=== PATIENT | male | born 1950 | race Caucasian/White ===

== ENCOUNTER 2019-09-06 11:41 | Emergency (ER) | payer OTHER, SELFPAY ==
--- NOTE | ~2019-09-06 | XR_ITS ---
EXAMINATION: XR chest 2V DATE: 09/06/2019 12:12 INDICATION: Chest pain and shortness of breath TECHNIQUE: PA and lateral views of the chest are obtained. COMPARISON: None available FINDINGS: The lungs are free of acute opacities. There is no pleural effusion or pneumothorax. Cardio megaly is noted. There is moderate thoracic spondylosis. Median sternotomy wires and mediastinal surg ical clips are seen, likely from prior coronary artery bypass grafting. IMPRESSION: 1. No acute cardiopulmonary abnormality. Reviewed, dictated and finalized at location B.
[2019-09-06 11:45] VITALS: BP 223/98; PULSE 74; RESP 21; TEMP 37.2; O2SAT 98
--- NOTE | 2019-09-06 11:50 | ECG_ITS ---
Measurements Intervals Royal Rate: 74 P: 19 GA: 240 QRS: -35 QRSD: 108 T: 7 QT: 324 QTc: 360 Interpretive Statements SINUS RHYTHM WITH FIRST DEGREE AV BLOCK INFERIOR INFARCT, AGE INDETERMINATE BASELINE ARTIFACT- I, II, AVR ABNORMAL ECG Electronically Signed On 09-06-2019 16:22:47 CDT by Jose Childers D.O.
[2019-09-06 11:52] VITALS: PULSE 76
--- NOTE | 2019-09-06 11:53 | ED.CHESTPAIN ---
HPI - Chest Pain General Chief Complaint: Chest Pain Stated Complaint: cp Time Seen by Provider: 09/06/19 11:53 History of Present Illness HPI narrative: Mild to moderate intermittent chest pain for about the past 2 hours. Started while walking up stairs. Better with rest and worse with exertion. He has h/o DC he says that this feels different. He is s/p CABG. Related Data Home Medications Medication Instructions Recorded Confirmed clonidine HCl 09/06/19 furosemide 09/06/19 metformin mg 09/06/19 metoprolol tartrate 09/06/19 omeprazole 09/06/19 quinapril mg 09/06/19 sertraline mg 09/06/19 simvastatin mg 09/06/19 09/06/19 Allergies Allergy/AdvReac Type Severity Reaction Status Date / Time No Known Allergies Allergy Verified 09/06/19 12:59 Review of Systems Review of Systems: All systems reviewed & are unremarkable except as noted in HPI and below Constitutional: Constitutional: Denies chills and Denies fever(s) Cardiovascular: Cardiovascular: Reports chest pain and Denies radiating jaw, neck or arm pain Respiratory: Respiratory: Reports dyspnea Gastrointestinal: Gastrointestinal: Denies abdominal pain, Denies nausea and Denies vomiting [facility] Past Medical History Medical History (Updated 09/06/19 @ 16:50 by Earl Raygoza MD) Myocardial infarct Surgical History Surgical History (Updated 09/06/19 @ 16:50 by Earl Raygoza MD) Hx of CABG Social History Social History Gender identity (if verbalized by the patient): Male Exam Const: General: healthy appearing, no acute distress and alert Nutritional Appearance: obese Orientation/consciousness: patient oriented x3 HENMT: Head: normal to inspection Neck: Neck: normal visual inspection and no lymphadenopathy Chest: Chest palpation & inspection: no tenderness Resp: Effort & Inspection: normal respiratory effort Auscultation: clear to auscultation bilaterally, no rales, no rhonchi and no wheezes Cardio: Jugular venous distension: no JVD Rate: regular rate Rhythm: regular rhythm Heart sounds: no murmurs GI: Inspection: non-distended GI Palp: Yes Soft to palpation and No Tenderness to palpation present (GI) Skin: General skin exam: normal color Neuro: General: patient oriented x3 and moves all extremities Speech: normal speech Extrem: General: no edema Psych: Appearance: well kempt Affect: normal affect Course Vital Signs Vital signs: Vital Signs Temperature 37.2 C 09/06/19 11:45 Pulse Rate 74 09/06/19 11:45 Respiratory Rate 21 H 09/06/19 11:45 Blood Pressure 223/98 H 09/06/19 11:45 Pulse Oximetry 98 09/06/19 11:45 Temperature 37.2 C 09/06/19 11:45 Pulse Rate 74 09/06/19 16:00 Respiratory Rate 14 09/06/19 16:00 Blood Pressure 124/74 09/06/19 16:00 Pulse Oximetry 97 09/06/19 16:00 MDM - Chest Pain MDM Narrative Medical decision making narrative: Chest pain resolved with nitro and metoprolol. Pain free for a few hours before second troponin. Troponins are not negative, but within normal limits. Pain was likely due to severly elevated BP. Case discussed with Christine Diallo. She is in agreement and feels that he can be discharged and should follow-up in clinic. Medical Records Data Attestation: I reviewed the patient's medical records. Lab Data Attestation: I reviewed the patient's lab results. Result diagrams: 09/06/19 11:58 09/06/19 11:58 Labs: Lab Results 09/06/19 09/06/19 09/06/19 Range/Units 11:58 11:58 11:58 WBC 8.5 (4.5-10.0) K/mm3 RBC 5.93 (4.6-6.20) M/mm3 Hgb 14.0 (14.0-18.0) g/dL Hct 45.2 (42.0-52.0) % MCV 76.2 L (80-100) fl MCH 23.6 L (26-34) pg MCHC 31.0 L (32-36) g/dl RDW 18.2 H (11.5-14.5) % Plt Count 212 (150-375) k/mm3 MPV 9.8 (7.4-10.4) fl Immature Gran % (Auto) 0.2 (0-0.5) % Neut % (Auto) 58.6 (45.5-
[2019-09-06 12:10] LABS: Basophils Absolute Auto 0.1 K/mm3 (0.0-0.1); Basophils Percent Auto 0.7 % (0.2-1.2); Eosinophils Absolute Auto 0.2 K/mm3 (0-0.3); Eosinophils Percent Auto 1.8 % (0-4.4); Hematocrit 45.2 % (42.0-52.0); Immature Granulocyte Absolute 0.02 K/mm3 (0.00-0.031); Immature Granulocyte Percent A 0.2 % (0-0.5); Lymphocytes Percent Auto 30.6 % (18.3-44.2); Mean Corpuscular Hemoglobin 23.6 pg (26-34); Mean Corpuscular Volume 76.2 fl (80-100); Mean Platelet Volume 9.8 fl (7.4-10.4); Monocytes Absolute Auto 0.7 K/mm3 (0.1-0.6); Monocytes Percent Auto 8.1 % (2.6-8.5); Neutrophils Percent Auto 58.6 % (45.5-73.1); Platelet Count Result 212 k/mm3 (150-375); Red Blood Count 5.93 M/mm3 (4.6-6.20); Red Cell Distribution Width 18.2 % (11.5-14.5); White Blood Count 8.5 K/mm3 (4.5-10.0)
[2019-09-06 12:20] LABS: Anion Gap 13.4 mmol/L (7-16); Blood Urea Nitrogen 16 mg/dL (9-20); Calcium 9.3 mg/dL (8.4-10.2); Carbon Dioxide 26 mmol/L (22-30); Chloride 103 mmol/L (98-107); Estimated CRCL calculation 117 ml/min; Estimated Glomerular Filt Rate > 60; Glucose 215 mg/dL (75-110); Potassium 4.4 mmol/L (3.4-5.0); Prothrombin Time 13.1 Seconds (11.1-14.7); Sodium 138 mmol/L (137-145)
[2019-09-06 12:21] LABS: Partial Thromboplastin Time 29.9 SECONDS (22.3-36.8)
[2019-09-06] MEDS: NITROGLYCERIN OINTMENT 1 INCH DOSE TRANSDERM (12:25)
[2019-09-06 12:32] LABS: Troponin I 0.013 ng/mL (0.000-0.034)
[2019-09-06 12:58] VITALS: BP 165/85; PULSE 72; RESP 22; O2SAT 96
[2019-09-06] MEDS: METOPROLOL TARTRATE INJ 5 MG/5 ML VIAL IV PUSH (12:58)
[2019-09-06 13:53] VITALS: BP 123/56; PULSE 68; RESP 17; O2SAT 95
[2019-09-06 14:51] VITALS: BP 132/81; PULSE 68; RESP 14; O2SAT 95
[2019-09-06 15:37] LABS: Troponin I 0.015 ng/mL (0.000-0.034)
[2019-09-06 16:00] VITALS: BP 124/74; PULSE 74; RESP 14; O2SAT 97
--- NOTE | 2019-09-06 16:28 | PC.NURSE ---
removed nitro patch prior to dept
== END 2019-09-06 16:45 | disposition home or self-care (01) ==
PROVIDERS: Emergency Provider Emergency Medicine; PCP Family Medicine
DX: R07.9 Chest pain, unspecified (principal); I10 Essential (primary) hypertension; I25.10 Atherosclerotic heart disease of native coronary artery without angina pectoris; Z95.1 Presence of aortocoronary bypass graft; I25.2 Old myocardial infarction; I44.0 Atrioventricular block, first degree
CPT/HCPCS: 36415; 71046; 80048; 84484; 85025; 85610; 85730; 93005; 96374; 99284; A9270

== ENCOUNTER → 2023-01-12 11:41 | Outpatient (CLI) | payer OTHER, SELFPAY ==
--- NOTE | ~2023-01-12 | XR_ITS ---
Clinical Indication: Cough PA and lateral views of the chest: Comparison: 09/06/2019 Findings: The lungs are clear, without evidence of focal consolidation or pleural effusion. Cardiome diastinal silhouette is stable. Bones and soft tissues are unremarkable. Impression: Clear lungs. Reviewed, dictated and finalized at location . ER HEARTH TECHNICIAN Impression: Clear lungs.
== END ==
PROVIDERS: PCP Family Medicine; Visit Provider Nurse Practitioner Family
DX: R05.9 Cough, unspecified (principal); R06.2 Wheezing; E11.9 Type 2 diabetes mellitus without complications; I10 Essential (primary) hypertension; Z87.891 Personal history of nicotine dependence; Z95.1 Presence of aortocoronary bypass graft
CPT/HCPCS: 71046

== ENCOUNTER 2023-05-22 10:40 | Outpatient (CLI) | payer OTHER, SELFPAY ==
[2023-05-22 14:21] LABS: Basophils Absolute Auto 0.1 K/mm3 (0.0-0.1); Basophils Percent Auto 0.9 % (0.2-1.2); Eosinophils Absolute Auto 0.3 K/mm3 (0-0.3); Eosinophils Percent Auto 3.4 % (0-4.4); Hematocrit 44.8 % (42.0-52.0); Hemoglobin 14.5 g/dL (14.0-18.0); Immature Granulocyte Absolute 0.01 K/mm3 (0.00-0.031); Immature Granulocyte Percent A 0.1 % (0-0.5); Lymphocytes Percent Auto 28.4 % (18.3-44.2); Mean Corpuscular HGB Conc 32.4 g/dl (32-36); Mean Corpuscular Hemoglobin 29.4 pg (26-34); Mean Corpuscular Volume 90.9 fl (80-100); Mean Platelet Volume 10.1 fl (7.4-10.4); Monocytes Absolute Auto 0.8 K/mm3 (0.1-0.6); Monocytes Percent Auto 10.7 % (2.6-8.5); Neutrophils Absolute Auto 4.2 K/mm3 (1.3-6.7); Neutrophils Percent Auto 56.5 % (45.5-73.1); Platelet Count Result 201 k/mm3 (150-375); Red Blood Count 4.93 M/mm3 (4.6-6.20); Red Cell Distribution Width 12.6 % (11.5-14.5); White Blood Count 7.4 K/mm3 (4.5-10.0)
[2023-05-22 15:34] LABS: Alanine Aminotransferase 23 U/L (6-50); Albumin Level 4.8 g/dL (3.5-5.1); Alkaline Phosphatase 89 U/L (38-126); Anion Gap 9 mmol/L (4-12); Aspartate Amino Transferase 35 U/L (17-59); Bilirubin,Total 0.7 mg/dL (0.2-1.3); Blood Urea Nitrogen 35 mg/dL (9-20); Calcium 9.6 mg/dL (8.4-10.2); Carbon Dioxide 29 mmol/L (22-30); Chloride 100 mmol/L (98-107); Cholesterol 146 mg/dL (0-200); Estimated Glomerular Filt Rate > 60; Glucose 124 mg/dL (65-110); HDL Direct 42 mg/dL; Potassium 4.2 mmol/L (3.4-5.0); Sodium 138 mmol/L (137-145); Triglycerides 248 mg/dL (<150)
[2023-05-22 15:40] LABS: Vitamin D 25 Hydroxy 30.4 ng/mL
[2023-05-22 15:46] LABS: LDL Cholesterol Direct 68 mg/dL
[2023-05-22 16:03] LABS: Hemoglobin A1C 6.2 % (<5.7)
[2023-05-22 16:04] LABS: Thyroid Stimulating Hormone 0.084 uIU/mL (0.465-4.680)
== END 2023-05-22 10:41 | disposition home or self-care (01) ==
LOC: ANHGOSHLAB 10:41
PROVIDERS: PCP Family Medicine; Visit Provider Nurse Practitioner Family
DX: E78.5 Hyperlipidemia, unspecified (principal); E11.9 Type 2 diabetes mellitus without complications; I10 Essential (primary) hypertension; E55.9 Vitamin D deficiency, unspecified; Z13.29 Encounter for screening for other suspected endocrine disorder
CPT/HCPCS: 36415; 80053; 80061; 82306; 83036; 84443; 85025

== ENCOUNTER 2023-12-06 08:04 | Outpatient (CLI) | payer OTHER, SELFPAY ==
--- NOTE | ~2023-12-06 | CT_ITS ---
CT Scan of the Chest without Contrast: Clinical Indication: Lung cancer screening, nicotine dependence Technique: Contiguous sections were acquired throughout the chest without intravenous contrast. Dose reduction technique was used on this scan by utilizing automated exposure control and iterative recon struction technique. The dose-length product (DLP) was 416.70 mGy-cm. Findings: There is no evidence of any significant mediastinal, hilar or axillary lymphadenopathy. Probable prio r CABG.. Probable enlarged thyroid gland with nodules. There is no evidence of pleural or pericardial effusion. 7 mm left lower lobe pulmonary nodule present (axial image 71). Images through the upper abdomen reveal no abnormalities. Impression: Lung RADS 3: Probably benign. Six-month follow-up screening CT advised. Reviewed, dictated and finalized at location . Impression: Lung RADS 3: Probably benign. Six-month follow-up screening CT advised.
== END 2023-12-06 08:05 | disposition home or self-care (01) ==
LOC: GOSHIMG 08:05
PROVIDERS: PCP Family Medicine; Visit Provider Nurse Practitioner Family
DX: Z12.2 Encounter for screening for malignant neoplasm of respiratory organs (principal); Z87.891 Personal history of nicotine dependence; R91.8 Other nonspecific abnormal finding of lung field
CPT/HCPCS: 71271

== ENCOUNTER 2025-02-01 06:09 | Emergency (ER) | payer OTHER, SELFPAY ==
--- NOTE | ~2025-02-01 | CT_ITS ---
CT lumbar spine CLINICAL HISTORY: Traumatic lower back pain Technique: Lumbar spine Sagittal and coronal reformats. No contrast CT images acquired with automatic exposure control for dose reduction DLP: 1317 mGy-cm Comparison: None Findings: No fracture. Trace grade 1 anterolisthesis L3 on 4. Grade 1 retrolisthesis L5 on S1. Multilevel disc disease, worst L3-4. Moderate degenerative changes. No paraspinal soft tissue abnormality. IMPRESSION: 1. No acute findings. Reviewed, dictated and finalized at location R. 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 No acute findings.
--- NOTE | ~2025-02-01 | CT_ITS ---
CT ABDOMEN AND PELVIS WITHOUT CONTRAST Clinical History: Kidney stone Comparison: 01/12/2017 Technique: Unenhanced axial images lung bases to symphysis pubis Coronal, sagittal reformats CT images acquired with automatic exposure control for dose reduction DLP: 1715 mGy-cm Findings: Without intravenous contrast, sensitivity for detecting visceral parenchymal abnormalities decreased. Lung bases: Clear. Visualized heart and pericardium: Unremarkable. Liver: Unremarkable. Gallbladder: Unremarkable. Spleen: Unremarkable. Pancreas: Tiny parenchymal calcifications. Adrenal glands: Unremarkable. Kidneys: Right kidney- No hydronephrosis. No renal stones. A few small cysts. Left kidney- No hydronephrosis. No renal stones. A few small cysts. Distal esophagus/stomach: Unremarkable. Small bowel loops: Normal caliber and wall thickness. Colon: Diverticula. Normal caliber and wall thickness. Normal RLQ appendix. Nodes: No enlarged nodes. Peritoneum: No ascites. No free intraperitoneal air. Pelvis obscured from bilateral hip prostheses streak artifact. Urinary bladder: Unremarkable. Prostate: Unremarkable. Bones: No acute bony abnormality. Soft tissues: Upper abdominal hernia mesh. Unopacified abdominal aorta: No aneurysmal dilatation. Atherosclerotic disease. IMPRESSION: 1. No acute findings. Reviewed, dictated and finalized at location R. AR IMPRESSION: 1. No acute findings.
[2025-02-01 06:11] VITALS: BP 202/97; PULSE 81; RESP 14; TEMP 37.2; O2SAT 96
--- OUTSIDE RECORDS SUMMARY | 2025-02-01 06:13 | XMS_ITS | Clinical Summary ---
Author Organization [facility] [address] [place] [address] Care Team Providers Care Data Management Engineer Name Role Phone Vianney Michel MD Primary Care Provider Allergies No known active allergies Medications nitroglycerin (NITROSTAT) 0.[address] 1 tablet (0.4MG) by sublingual route as needed for chest pain 0 2 Active sertraline (ZOLOFT) 50 mg tablet take 1 tablet by oral route every day 0 0 4 Active metoprolol (LOPRESSOR) 50 mg tablet TAKE 1 TABLET TWICE A DAY WITH MEALS 180 3 3 Active Additional Information Patient taking differently: 100 mg oral 2 times daily, 2 per day with meals., Reported on 03/01/2024 cloNIDine (CATAPRES) 0.3 mg tablet TAKE 1 TABLET TWICE A DAY 180 1 3 Active metFORMIN (GLUCOPHAGE) 500 mg tablet Take 2 tablets (1,000 mg total) by mouth 2 (two) times a day with meals Active fish oil-dha-epa 1,200-144-216 mg capsule Take by mouth. Acti ve aspirin 325 mg tablet Take 1 tablet (325 mg total) by mouth daily Active acetaminophen (TYLENOL) 500 mg tablet Take 1 tablet (500 mg total) by mouth every 6 (six) hours as needed for pain Active pioglitazone (ACTOS) 15 mg tablet Take 1 tablet (15 mg total) by mouth daily [address] (NexIUM) 20 mg capsule Take 1 capsule (20 mg total) by mouth daily before breakfast Active finasteride (PROSCAR) 5 mg tablet Take 1 tablet (5 mg total) by mouth daily 3 Active tamsulosin (FLOMAX) 0.4 mg extended release capsule TAKE 1 CAPSULE BY MOUTH EVERYDAY AT BEDTIME 3 Active losartan (COZAAR) 100 mg tablet Take 1 tablet (100 mg total) by mouth daily 3 Active torsemide (DEMADEX) 20 mg tablet TAKE 1 TABLET BY MOUTH DAILY. 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 2 diabetes mellitus (CMS/HCC) 10/27/2017 Acute deep vein thrombosis ( DVT) of distal vein of right lower extremity 03/06/2017 Obesity (BMI 30-39.9) 08/29/2016 Hypertension associated with diabetes 08/29/2016 Coronary artery disease invo lving p[place] coronary artery of [place] heart without angina pectoris 08/29/2016 Body mass index 40+ - severely obese 02/04/2016 Overview (05/13/2016): Morbid obesity with BMI of 45.0-49.9, adult Hx of CABG 02/04/2016 Overview (05/13/2016): S/P CABG (coronary artery bypass graft) Resolved Problems Problem Noted Date Diagnosed Date Resolved Date Chronic anticoagulation 03/06/201710/08 Contusion of heart 04/21/2016 3 Overview (07/01/2016): Contusion of heart, closed Dyslipidemia 02/04/2016 02/02/2021 Overview (05/13/2016): Dyslipidemia Surgical History Surgery Date Site/Laterality Comments OTHER SURGICAL HISTORY B/L hip replacements KNEE ARTHROPLASTY left knee replacement CORONARY ARTERY BYPASS GRAFT Coronary Artery Bypass Graft Medical History Medical History Date Comments Chronic coronary artery disease Coronary Artery Disease Hypertension Hypertension Adiposity obesity Osteoarthritis osteoarthritis Hx Other Medical hx esophageal s tricture Hyperlipidemia hyperlipidemia Family History Medical History Relation Name Comments No Known Problems Brother No Known Problems Father No Known Problems Father's Brother No Known Problems Father's Sister No Known Problems Maternal Grandfather No Known Problems Maternal Grandmother No Known Problems Mother No Known Problems Mother's Brother No Known Problems Mother's Sister No Known Problems Paternal Grandfather No Known Problems Paternal Grandmother No Known Problems Sister Anemia Neg Hx Arrhythmia Neg Hx Asthma Neg Hx Clotting disorder Neg Hx Fainting Neg Hx Heart attack Neg Hx Heart disease Neg Hx Heart failure Neg Hx Hyperlipidemia Neg Hx Hypertension Neg Hx Hypertrophic cardiomyopathy Neg Hx Stroke Neg Hx Sudden Cardiac Neg Hx Relation Name Status Comments Brother Father Father's Brother Father's Sister Maternal Grandfather Maternal Grandmother Mother Mother's Brother Mother's Sister Paternal Grandfather Paternal Grandmother Sister Social History Tobacco Use Types Packs/Day Years Used Date Smoking Tobacco: Former Smokeless Tobacco: Never Tobacco Cessation:Counseling Given: Not Answered Alcohol Use Standard Drinks/Week Comments No 0 (1 standard drink = 0.6 oz pur e alcohol) Sex and Gender Information Value Date Recorded Sex Assigned at Not on file Legal Sex Male 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 Gender Identity Not on file Sexual Orientation Not on file Last Filed Vital Signs Vital Sign Reading Time Taken Comments Blood Pressure 110/56 03/01/2024 1:00 PM ROTARY FURNACE OPERATOR Pulse 66 03/01/2024 1:00 PM ROTARY FURNACE OPERATOR Temperature - - Respiratory Rate 16 08/29/2016 1:07 PM CDT Oxygen Saturation 98% 03/01/2024 1:00 PM ROTARY FURNACE OPERATOR Inhaled Oxygen Concentration - - Weight 124.7 kg (275 lb) 03/01/2024 1:00 PM ROTARY FURNACE OPERATOR Height 177.8 cm (5' 10) 03/01/2024 1:00 PM ROTARY FURNACE OPERATOR Body Mass Index 39.46 03/01/2024 1:00 PM ROTARY FURNACE OPERATOR Plan of Treatment Health Maintenance Due Date Last Done Comments Albumin Creatinine Ratio, Urine 1948 Depression Screening 1948 Fall Risk Assessment 1948 Hemoglobin A1C 1948 Hepatitis C Screening 1948 eGFR 1948 Dilated Eye Exam 1948 Foot Exam 1948 DTaP/Tdap/Td Vaccine (1 - Tdap) 1959 Hepatitis B Screening 1966 Pneumococcal vaccine 65+ (1 of 2 - PCV) 1967 Zoster Vaccine (1 of 2) 1998 Abdominal Aortic Aneurysm (A AA) Screen 2013 Well Visit 65+ 2013 Lipid Panel 08/06/2024 08/07/2023, 04/0 04/2022, 02/02/2021, Additional history exists Influenza Vaccine (#1) 2024 Procedures Procedure Name Priority Date/Time Associated Diagnosis Comments POCT LIPID PANEL Routine 08/07/2023 2:56 PM CDT Coronary artery disease involving [place] coronary artery of [place] heart without angina pectoris from Last 3 Months or Most Recently Relevant to Health Maintenance Results * POCT lipid panel (08/07/2023 2:56 PM CDT) Cholesterol, POC 168 mg/dL HDL, POC 43 mg/dL Triglycerides, POC 301 mg/dL LDL Cholesterol POC 65 mg/dL Chol/HDL Ratio, POC 1.5 Non-HDL Cholesterol, POC 125 mg/dL Cholesterol Total, POC 168 mg/dL Capillary blood 08/07/2023 2 :56 PM CDT Aidee Hu NP POINT OF CARE TEST ORDERA BLES Final Result from Last 3 Months or Most Recently Relevant to Health Maintenance Insurance [employer] PPO [employer] P[employer] Care Teams Data Management Engineer Relationship Specialty Start Date End Date Vianney Michel MD [address] [facility] [address] [place] [address] PCP - General Family Practice 02/26/24
--- OUTSIDE RECORDS SUMMARY | 2025-02-01 06:13 | XMS_ITS | Clinical Summary ---
Author Organization [facility] Address [address] [place] [address] Care Team Providers Care Store Loss Prevention Manager Name Role Phone No, Pcp SIDING COREBOARD INSPECTOR Primary Care Provider Unavailabl e Social History Tobacco Use Types Packs/Day Years Used Date Smoking Tobacco: Never Assessed Sex and Gender Information Value Date Recorded Sex Assigned at Not on file Legal Sex Male 5:41 PM EST Gender Identity Not on file Sexual Orientation Not on file Plan of Treatment Not on file Medical Devices Not on file Care Teams Store Loss Prevention Manager Relationship Specialty Start Date End Date No, Pcp, SIDING COREBOARD INSPECTOR N/A Do not use PCP - General Family Medicine 01/26/20
--- OUTSIDE RECORDS SUMMARY | 2025-02-01 06:13 | XMS_ITS | Encounter Summary ---
Author Organization [facility] Address [address] [place] [address] Care Team Providers Care Scourer Name Role Phone Laura Mcdonald MD Primary Care Provider [phone]- [phone] Laura Mcdonald MD Primary Care Provider [phone]- [phone] Robert Correia MD Primary Care Provider +1- [phone] Gayle Escobar MD Primary Care Provider Vianney Michel MD Primary Care Provider Vianney Michel MD Primary Care Provider Encounter Details Date Type Department Care Team (Late st Contact Info) Description 02/12/2016 Orders Only [facility] ProviderMerlyn MD [address] [place] [id number] Social History Tobacco Use Types Packs/Day Years Used Date Smoking Tobacco: Former Cigarettes Q uit: 02/06/1985 Alcohol Use Standard Drinks/Week Comments No 0 (1 standard drink = 0.6 oz pur e alcohol) Sex and Gender Information Value Date Recorded Sex Assigned at Not on file Legal Sex Male 12:27 AM 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 us Historical Provider [facility] NELIDA PEREZ Final Result documented in this encounter Visit Diagnoses Not on filedocumented in this encounter Care Teams Scourer Relationship Specialty Start Date End Date Laura Mcdonald MD PCP - General 05/06/16 06/22/17 Laura Mcdonald MD PCP - General 01/16/14 05/05/16 Robert Correia MD [address] [place] [address] PCP - General Family Practice 06/23/17 01/17/19 Gayle Escobar MD [address] [place] [address] PCP - General Family Medicine 01/18/19 01/22/20 Vianney Michel MD [address] [place] [address] PCP - General Family Practice 01/23/20 02/25/24 Vianney Michel MD [address] [place] [address] [address] [place] [address] PCP - General Family Practice 02/26/24 documented as of this encounter
--- OUTSIDE RECORDS SUMMARY | 2025-02-01 06:13 | XMS_ITS | Encounter Summary ---
Author Organization [facility] Address [address] [facility] [address] [place] [address] Care Team Providers Care Sales Consulting Director Name Role Phone Laura Mcdonald MD Primary Care Provider [phone]- [phone] Laura Mcdonald MD Primary Care Provider [phone]- [phone] Robert Correia MD Primary Care Provider +1- [phone] Gayle Escobar MD Primary Care Provider Vianney Michel MD Primary Care Provider Vianney Michel MD Primary Care Provider Encounter Details Date Type Department Care Team (Late st Contact Info) Description 04/15/2016 Orders Only [facility] ProviderMerlyn MD [address] [place] [address] Social History Tobacco Use Types Packs/Day Years Used Date Smoking Tobacco: Former Cigarettes Q uit: 02/06/1985 Alcohol Use Standard Drinks/Week Comments No 0 (1 standard drink = 0.6 oz pur e alcohol) Sex and Gender Information Value Date Recorded Sex Assigned at Not on file Legal Sex Male 12:27 AM ENDOSCOPY RN Gender Identity Not on file Sexual Orientation Not on file documented as of this encounter Plan of Treatment Not on file documented as of this encounter Procedures Procedure Name Priority Date/Time Associated Diagnosis Comments CARDIOLOGY REPORT 04/15/2016 documented in this encounter Results * CARDIOLOGY REPORT (04/15/2016) Anatomical Region Laterality Modality Other Narrative 04/15/2016 Ordered by an unspecified provider. us Historical Provider [facility] NEL[facility] PEREZ Final Result documented in this encounter Visit Diagnoses Not on filedocumented in this encounter Care Teams Sales Consulting Director Relationship Specialty Start Date End Date Laura Mcdonald MD PCP - General 05/06/16 06/22/17 Laura Mcdonald MD PCP - General 01/16/14 05/05/16 Robert Correia MD [address] [place] [address] PCP - General Family Practice 06/23/17 01/17/19 Gayle Escobar MD [address] [place] [address] PCP - General Family Medicine 01/18/19 01/22/20 Vianney Michel MD [address] [place] [address] PCP - General Family Practice 01/23/20 02/25/24 Vianney Michel MD [address] [place] [address] [address] [place] [address] PCP - General Family Practice 02/26/24 documented as of this encounter
--- NOTE | 2025-02-01 07:37 | ED.BACK ---
HPI - Back Pain/Injury General Chief Complaint: Back Pain/Injury Stated Complaint: middle back pain Time Seen by Provider: 02/01/25 07:37 Source: patient Mode of arrival: ambulatory Limitations: no limitations History of Present Illness HPI Narrative: 74 years old white male came to the ED from home by private car complaining of pain mid lower back, left buttock, radiating to left thigh, burning sensation started around Thanksgiving after quite a bit of backyard work. History of spinal stenosis and surgery years ago. Pain worse with long sitting or symptom position. Nothing make it better. Patient denies any fever, chills, nausea, vomiting, or recent trauma Related Data Home Medications ?Medication ?Instructions ?Recorded ?Confirmed ?Last Taken ?Type aspirin 325 mg tablet 325 mg PO DAILY 06/10/19 11/22/24 Unknown History acetaminophen 500 mg capsule 500 mg PO Q6H PRN 09/10/19 11/22/24 Unknown History omega-3 fatty acids 1,000 mg 1,000 mg PO DAILY 09/10/19 11/22/24 Unknown History capsule esomeprazole magnesium 20 mg 20 mg PO DAILY 05/11/21 11/22/24 Unknown History capsule,delayed release finasteride 5 mg tablet 5 mg PO DAILY 11/18/22 11/22/24 Unknown History tamsulosin 0.4 mg capsule 0.4 mg PO DAILY 11/18/22 11/22/24 Unknown History blood sugar diagnostic (OneTouch 05/22/24 11/22/24 Unknown History Verio test strips) Allergies Allergy/AdvReac Type Severity Reaction Status Date / Time No Known Allergies Allergy Verified 02/01/25 06:10 Review of Systems Review of Systems: All systems reviewed & are unremarkable except as noted in HPI and below PMFSH Past Medical History Medical History Diabetes with retinopathy Former smoker Abnormal TSH Mild vitamin D deficiency Edema GERD (gastroesophageal reflux disease) CAD (coronary artery disease) Diabetes mellitus Myocardial infarct Hypertension Hyperlipidemia Surgical History Surgical History History of cataract surgery (~07/2021) History of cataract surgery (~06/2021) Hx of CABG Social History Social History Social History: Caffeine-tea Smoking status: Former smoker Tobacco type: cigarettes Second hand tobacco smoke exposure: No Smoking end date: 02/06/87 Alcohol intake: never Substance use: never Substance use type: does not use Lack of Transportation: No Lack of Food: Never True Current Housing: I Have Housing Concerned About Future Housing: No Difficulty Paying Gas/Electric Bills: No Difficulty Paying for Meds: No Currently Unemployed: No Education: Associate Degree Difficulty w/ Childcare or Family Care: No Gender identity (if verbalized by the patient): Male Exam Narrative: General appearance: Well-developed, well-nourished Skin: Normal color Head: Normocephalic, nontraumatic Eyes: Clear conjunctiva ENT: Oropharynx normal, ears normal, nose normal Neck: Supple, nontender Chest and respiratory: Airway patent, no respiratory distress, no accessory muscle use Heart: Regular rate/rhythm Abdomen: Soft, nontender, no organomegaly, quiet bowel sounds Vascular: Normal peripheral pulses, normal capillary refill. Musculoskeletal: Mid lumbar tenderness, no bruises or swelling or rash, Neurologic: Alert and oriented ?3, positive left leg raising test Course Vital Signs Vital signs: Vital Signs Temperature 37.2 C 02/01/25 06:11 Pulse Rate 81 02/01/25 06:11 Respiratory Rate 14 02/01/25 06:11 Blood Pressure 202/97 H 02/01/25 06:11 Pulse Oximetry 96 02/01/25 06:11 Oxygen Delivery Room Air 02/01/25 06:11 Temperature 37.2 C 02/01/25 06:11 Pulse Rate 81 02/01/25 06:11 Respiratory Rate 14 02/01/25 06:11 Blood Pressure 202/97 H 02/01/25 06:11 Pulse Oximetry 96 02/01/25 06:11 Oxygen Delivery Room Air 02/01/25 06:11 [facility] Narrative Medical decision making narrative: Differential diagnosis: Sciatica, musculoskeletal, spinal stenosis, kidney stone, urinary tract infection CT lumbar spine showed CT abdomen and pelvis without contrast showed Urinalysis showed Differential Diagnosis Differential Diagnosis: As above Lab Data Labs: Lab Results 02/01/25 Range/Units 07:51 Urine Color Yellow (Yellow) Urine Appearance Clear (Clear) Urine pH 6.0 (5.0-9.0) Ur Specific Ophelia 1.018 (1.001-1.035) Urine Protein Trace (Negative) mg/dL Urine Glucose (UA) Negative (Negative) mg/dL Urine Ketones Negative (Negative) mg/dL Ur Blood (Man) Negative (Negative) Urine Nitrate Negative (Negative) Urine Bilirubin Negative (Negative) Urine Urobilinogen 1.0 (<2.0) mg/dL Leukocyte Esterase Rfl Negative (Negative) KRISTY/UL Urine RBC 0-2 (0-2) /hpf Urine WBC 0-5 (0-3) /hpf Ur Squamous Epith Cells None seen (Few) /hpf Urine Bacteria None seen /hpf Urine Casts 0-2 Imaging Data Radiologist's impression: ITS Impressions Abdomen/Pelvis CT 02/01/25 08:40 IMPRESSION: 1. No acute findings. Critical Care Time Critical Care Time Critical Care Time: No Discharge Plan Discharge Clinical Impression: Left lumbar radiculopathy Patient Disposition: Home Condition: Stable Instructions: Lumbar Radiculopathy (ED), Lower Back Exercises (ED) Additional Instructions: Return if symptoms are worsening , call your family physician for appointment, take Tylenol, ibuprofen as as needed for aches and pain, continue home medications. Patient Language: Yakut Prescriptions: New dexamethasone 4 mg tablet 4 mg PO BID Qty: 10 0RF cyclobenzaprine 5 mg tablet 5 mg PO TID Qty: 20 0RF No Action aspirin 325 mg tablet 325 mg PO DAILY omega-3 fatty acids 1,000 mg capsule 1,000 mg PO DAILY acetaminophen 500 mg capsule 500 mg PO Q6H PRN finasteride 5 mg tablet 5 mg PO DAILY tamsulosin 0.4 mg capsule 0.4 mg PO DAILY (DME) OneTouch Verio test strips Strip See Rx Instructions .Route Rx Instructions: Test once daily nitroglycerin 0.4 mg tablet, sublingual 0.4 mg SUBLINGUAL Q5M PRN (Reason: chest pain) Qty: 30 0RF Rx Instructions: do not exceed 3 doses per episode, place one tablet under tongue esomeprazole magnesium 20 mg capsule,delayed release(DR/EC) 20 mg PO DAILY fenofibrate 160 mg tablet 160 mg PO DAILY Qty: 90 1RF simvastatin 40 mg tablet 40 mg PO QHS Qty: 90 1RF (DME) lancets [BD Ultra Fine Lancets] 33 gauge misc See Rx Instructions .Route Qty: 100 1RF Rx Instructions: check blood sugars q.day as directed torsemide 20 mg tablet 20 mg PO DAILY PRN (Reason: edema) Qty: 90 1RF metformin 500 mg tablet 1,000 mg PO BID Qty: 360 1RF cholecalciferol (vitamin D3) 50 mcg (2,000 unit) tablet 50 mcg PO DAILY Qty: 90 2RF metoprolol tartrate 50 mg tablet 100 mg PO BID Qty: 360 1RF clonidine HCl 0.3 mg tablet 0.3 mg PO BID Qty: 180 1RF pioglitazone 15 mg tablet 15 mg PO DAILY Qty: 90 1RF sertraline 50 mg tablet 50 mg PO DAILY Qty: 90 1RF losartan 100 mg tablet 100 mg PO DAILY Qty: 90 1RF Follow-up/Referrals: Ashley Menjivar APRN [Primary Care Provider, Family Practice]
[2025-02-01 08:03] LABS: Add Urine Microscopic? YES; Appearance Urine Clear (Clear); Glucose Urine UA Negative (Negative); Leukocyte Esterase Ur Negative LEU/UL (Negative); Nitrate Urine Negative (Negative); Non Pathogenic Casts 0-2; Specific Grav Ur 1.018 (1.001-1.035)
[2025-02-01] MEDS: dexAMETHasone SOD PHOS INJ 10 MG/ML 1 ML VIAL IM (08:37)
[2025-02-01] MEDS: HYDROmorphone HCL INJ (*CRX) 1 MG/ML SYR IM (08:37)
[2025-02-01] MEDS: ONDANSETRON HCL ODT 4 MG TABLET PO (08:37)
[2025-02-01 09:25] VITALS: BP 140/78; PULSE 70; RESP 16; O2SAT 97
== END 2025-02-01 09:25 | disposition home or self-care (01) ==
LOC: ANHED 08:22
PROVIDERS: Emergency Provider Emergency Medicine; PCP Nurse Practitioner Family
DX: M54.16 Radiculopathy, lumbar region (principal); I25.10 Atherosclerotic heart disease of native coronary artery without angina pectoris; I10 Essential (primary) hypertension; I25.2 Old myocardial infarction; E11.319 Type 2 diabetes mellitus with unspecified diabetic retinopathy without macular edema; E55.9 Vitamin D deficiency, unspecified; K21.9 Gastro-esophageal reflux disease without esophagitis; Z95.1 Presence of aortocoronary bypass graft; Z87.891 Personal history of nicotine dependence; Z98.42 Cataract extraction status, left eye; Z98.41 Cataract extraction status, right eye; Z79.82 Long term (current) use of aspirin; Z79.84 Long term (current) use of oral hypoglycemic drugs; Z79.899 Other long term (current) drug therapy
CPT/HCPCS: 72131; 74176; 81001; 96372; 99284; A9270; J1100; J1171